=== PATIENT | female | born 1970 | race American Indian/Alaskan Native ===

== ENCOUNTER 2018-06-18 17:01 | Outpatient (CLI) | payer BC ==
--- NOTE | 2018-06-18 17:45 | XRay Report ---
FINAL REPORT EXAM: XR CHEST ROUTINE 2V HISTORY: COUGH TECHNIQUE: One view examination of the chest PRIORS: None FINDINGS: Atherosclerotic change in the thoracic aorta. Degenerative change in the thoracic spine. There is no visible pulmonary consolidation, pleural effusion, or pneumothorax. Cardiac silhouette size is normal without vascular congestion. IMPRESSION: No evidence of acute cardiopulmonary disease in the visualized chest
== END 2018-06-18 17:02 | disposition home or self-care (01) ==
LOC: XRAY 17:01
PROVIDERS: ATTEND Internal Medicine
DX: A15.0 Tuberculosis of lung (principal)
CPT/HCPCS: 36415; 71046; 82164

== ENCOUNTER 2018-08-05 17:55 | Outpatient (CLI) | payer BC ==
[2018-08-05 18:50] LABS: Hematocrit 27.6 % (30.3-42.9); Hemoglobin 8.4 gm/dl (10.1-14.3); Mean Corpuscular HGB Conc 31 % (30-34); Platelet Count 326 K/mm3 (140-440); Red Blood Count 5.28 M/mm3 (3.65-5.03)
[2018-08-05 18:52] LABS: Alanine Aminotransferase 7 units/L (7-56); Albumin 4.1 g/dL (3.9-5); BUN/Creatinine Ratio 28; Blood Urea Nitrogen 14 mg/dL (7-17); Calcium 11.1 mg/dL (8.4-10.2); Hemolysis Index 2
[2018-08-05 18:53] LABS: Mean Corpuscular Volume 52 fl (79-97); Red Cell Distribution Width 22.9 % (13.2-15.2)
[2018-08-05 21:00] LABS: Basophils % (Manual) 0 % (0.0-1.8); Total Cells Counted 100
[2018-08-05 21:01] LABS: Anisocytosis 1+; Eosinophils % (Manual) 0 % (0.0-4.3)
[2018-08-05 21:06] LABS: Burr Cells 1+; Hypochromasia 2+; Platelet Estimate Consistent w Auto; Target Cells 1+
== END 2018-08-05 17:56 | disposition home or self-care (01) ==
LOC: LAB 17:55
PROVIDERS: ATTEND Internal Medicine
DX: Z00.01 Encounter for general adult medical examination with abnormal findings (principal); E55.9 Vitamin D deficiency, unspecified; D50.9 Iron deficiency anemia, unspecified; R53.83 Other fatigue
CPT/HCPCS: 36415; 80053; 82306; 82607; 84443; 85007; 85025

== ENCOUNTER 2019-12-20 10:54 | Outpatient (CLI) | payer BC | END 2019-12-20 10:55 | disposition home or self-care (01) | LOC: MAMMO 10:54 | PROVIDERS: ATTEND Internal Medicine | DX: R92.8 Other abnormal and inconclusive findings on diagnostic imaging of breast (principal) | CPT/HCPCS: 77066 ==

== ENCOUNTER 2020-01-26 14:05 | Outpatient (CLI) | payer BC ==
--- NOTE | 2020-01-26 16:37 | Ultrasound Report ---
Left axillary Ultrasound HISTORY: ABNORMAL MAMMOGRAM/US OF LEFT AXILLA. TECHNIQUE: Grayscale and color imaging performed. COMPARISON: Diagnostic mammogram from 12/20/2019 FINDINGS: There is pathologic left axillary adenopathy. There are enlarged lymph nodes nodes measurin g up to 1.4 cm in short axis with cortical thickening. For example, one lymph node demonstrates eccen tric cortical thickening up to 8 mm. IMPRESSION: Pathologic left axillary adenopathy. The patient had a right breast ultrasound-guided bio psy today and I included a right axillary lymph node biopsy as well since the right axilla also demon strates pathologic adenopathy. Please see that separate procedure report for further details. Signer Name: Casimiro Olvera MD Signed: 01/26/2020 4:33 PM Workstation Name: [id number]
--- NOTE | 2020-01-27 15:06 | Ultrasound Report ---
Procedure: Ultrasound-guided left right breast and axillary lymph node biopsies Clinical information/indication: Patient with right-sided breast nodule which is located at the 10:00 position and also with pathologic right axillary adenopathy Comparison: Diagnostic mammogram of the right breast from 01/13/2020 and right breast ultrasound from 12/20/2019 Procedure: The benefits, indications and risks were discussed with the patient including but not limi allyn to bleeding, infection, hematoma formation, and inadequate tissue sampling. The patient agreed to proceed with both verbal and written consent. A timeout procedure was performed using 2 patient iden tifiers. The breast was prepped and draped in the usual sterile fashion. Lidocaine with and without epinephrin e were used for local anesthesia. Under direct ultrasound guidance, a single core sample was obtained of the right breast nodule which was a cyst since the cyst collapsed immediately after the biopsy. T he wall of the cyst was biopsied. No biopsy marker was placed. Biopsy device was removed and hemostas is achieved with manual pressure. A sterile dressing was applied to the skin. Attention was then shif allyn to the right axilla were 2 separate biopsies were performed with 1 sample placed in formalin and the other in RPMI solution for flow cytometry. A biopsy marker was then placed, biopsy device removed , and manual pressure applied as well as a sterile dressing. The patient tolerated the procedure without difficulty. No complications were encountered. Specimens were sent to pathology. IMPRESSION: 1. Technically successful right breast and right axillary lymph node biopsies. An addendum will be issued once pathology returns on this procedure. Signer Name: Casimiro Olvera MD Signed: 01/26/2020 4:36 PM Workstation Name: [id number]
== END 2020-01-26 14:06 | disposition home or self-care (01) ==
LOC: SPVWC 14:05
PROVIDERS: ATTEND Surgery
DX: N63.11 Unspecified lump in the right breast, upper outer quadrant (principal); R92.8 Other abnormal and inconclusive findings on diagnostic imaging of breast; N64.89 Other specified disorders of breast; I89.8 Other specified noninfective disorders of lymphatic vessels and lymph nodes; N60.01 Solitary cyst of right breast
CPT/HCPCS: 38505; 76942; 88305

== ENCOUNTER 2020-02-08 14:58 | Outpatient (CLI) | payer BC ==
--- NOTE | 2020-02-09 08:43 | Mammography Report ---
Stereotactic guided right breast biopsy, 02/09/2020 7:32 AM CLINICAL INFORMATION/INDICATION: The patient has a history of abnormal mammogram manifested by a smal l faint cluster of calcifications in the right retroareolar region. She presents for stereotactic brandy ded biopsy. She has also recently undergone ultrasound-guided biopsy of a right breast lesion and rig ht axillary lymph node, which yielded benign results. These are dictated in a separate report. COMPARISON: Ultrasound-guided biopsy, 01/26/2020. Diagnostic mammogram, 01/13/2020. Right breast ultras ound and diagnostic mammogram, 12/20/2019. PROCEDURE: Risks, benefits and indications to the procedure were discussed with the patient in detail, including bleeding, infection, hematoma formation and inadequate tissue sampling. The patient agreed to procee d with both verbal and written consent. A timeout procedure was performed with 2 patient identifiers. The patient was placed in the prone position on the biopsy table. System Support Analyst radiograph and paired images were obtained of the right retroareolar region. However, this very faint cluster of calcifications wa s not able to be clearly visualized as a target for biopsy. Additionally, the biopsy was not feasible due to inadequate breast thickness. Therefore, biopsy was not able to be performed due to poor visibility of the calcifications and inade quate breast thickness. I discussed these findings in detail with the patient. She has a follow-up ap pointment scheduled with Dr. Trevizo for next week. The patient and I discussed options of either a ttempting needle localization for surgical excision versus a six-month follow-up, given the benign ap pearance of these calcifications. IMPRESSION: 1. Stereotactic guided right breast biopsy was not feasible due to poor visibility of the targeted le arlene and due to inadequate breast thickness. Options would include attempting to perform a needle loc alization and surgical excision, although this may be difficult due to poor visibility of the targete d lesion. Alternatively, a six-month follow-up right mammogram with magnification views could be perf ormed, given that the calcifications demonstrate a likely benign morphology. Signer Name: Leatha Goss MD Signed: 02/09/2020 8:39 AM Workstation Name: [id number]
== END 2020-02-08 14:59 | disposition home or self-care (01) ==
LOC: SPVWC 14:58
PROVIDERS: ATTEND Surgery
DX: R92.1 Mammographic calcification found on diagnostic imaging of breast (principal); R92.8 Other abnormal and inconclusive findings on diagnostic imaging of breast

== ENCOUNTER 2020-03-08 07:59 | Day surgery (SDC) | payer BC ==
[2020-03-06 10:15] LABS: Hematocrit 25.8 % (30.3-42.9); Hemoglobin 8.8 gm/dl (10.1-14.3); Mean Corpuscular HGB Conc 34 % (30-34); Red Blood Count 4.71 M/mm3 (3.65-5.03)
[2020-03-06 10:18] LABS: Mean Corpuscular Volume 55 fl (79-97); Platelet Count 174 K/mm3 (140-440); Red Cell Distribution Width 22.9 % (13.2-15.2)
[2020-03-06 15:25] VITALS: BP 178/98
[~2020-03-08 07:59] MED LIST: LIDOCAINE (1%) 10 MG/1 ML VIAL 20 ML MDV ONE; ceFAZolin/Water 2 GM/20 ML 2 GM/20 ML SYRINGE IV NR
--- NOTE | 2020-03-08 09:22 | Anesthesia Day of Surgery ---
Anesthesia Day of Surgery - Day of Surgery Patient Examined: Yes Patient H&P Reviewed: Yes Patient is NPO: Yes
[2020-03-08] MEDS ORDERED: HYDROmorphone 1 MG/1 ML INJ IV PRN ×2 (09:23)
[2020-03-08] MEDS ORDERED: ONDANSETRON 4 MG/2 ML INJ IV PRN (09:23)
[2020-03-08] MEDS ORDERED: LACTATED RINGERS 1,000 ML ONE (09:23)
--- NOTE | 2020-03-08 09:23 | Anesthesia Consultation ---
Anesthesia Consult and Med Hx Date of service: 03/08/20 - Airway Anesthetic Teeth Evaluation: Chipped ROM Head & Neck: Adequate Mental/Hyoid Distance: Adequate Mallampati Class: Class II Intubation Access Assessment: Good - Pre-Operative Health Status ASA Pre-Surgery Classification: ASA2 Proposed Anesthetic Plan: General - Pre-Anesthesia Comment Pre-Anesthesia Comments: Slow to wake up - Pulmonary Hx Respiratory Symptoms: No (+2FS) - Cardiovascular System Hx Hypertension: No - Central Nervous System Hx Neuromuscular Disorder: Yes (Migraines) Hx Psychiatric Problems: No - Hematic Hx Sickle Cell Disease: Yes ([facility] Trait only) - Other Systems Hx Cancer: No
[2020-03-08] MEDS ORDERED: MIDAZOLAM 2 MG/2 ML INJ IV NR (10:00)
[2020-03-08] MEDS ORDERED: LACTATED RINGERS 1,000 ML IV SCH (10:00)
--- NOTE | 2020-03-08 11:58 | Mammography Report ---
RIGHT BREAST NEEDLE LOCALIZATION USING X-RAY GUIDANCE The procedure was explained to the patient and informed consent obtained. PROCEDURE: Using 3 mL of 1% buffered lidocaine, a 25 gauge needle and x-ray guidance, the subtle rig ht breast calcifications were localized with standard needle/wire technique on the cc view from super ior approach. The calcifications could not confidently be identified on the lateral image of the [address]. Multiple lateral views were obtained and differing compressions without success. These findings w ere discussed with Dr. Trevizo and it was decided to terminate the procedure. IMPRESSION: Unsuccessful right breast lesion localization as described above. Thank you for allowing us to participate in the care of your patient. Signer Name: Buddy Mg Jr, MD Signed: 03/08/2020 11:53 AM Workstation Name: [id number]
== END 2020-03-08 08:00 | disposition home or self-care (01) ==
LOC: OR 07:59
PROVIDERS: ATTEND Surgery
DX: N63.10 Unspecified lump in the right breast, unspecified quadrant (principal); Z20.828 Contact with and (suspected) exposure to other viral communicable diseases; Z53.8 Procedure and treatment not carried out for other reasons; G43.909 Migraine, unspecified, not intractable, without status migrainosus; M19.90 Unspecified osteoarthritis, unspecified site; Z98.891 History of uterine scar from previous surgery; Z90.12 Acquired absence of left breast and nipple; Z88.8 Allergy status to other drugs, medicaments and biological substances; Z98.890 Other specified postprocedural states
CPT/HCPCS: 19281; 36415; 84703; 85027; J7120; U0003